=== PATIENT | male | born 1955 | race Caucasian/White ===

== ENCOUNTER 2020-12-19 16:02 | Observation (INO) ==
[2020-12-19 16:50] LABS: Basophils % 0.6 %; Eosinophils # 0.2 K/mcL (0.0-0.6); Eosinophils % 4.2 %; Hematocrit 38.2 % (37.5-50.1); Hemoglobin 12.7 g/dL (12.9-16.9); Immature Granulocytes % 0.4 % (0-4); Lymphocytes # 1.2 K/mcL (0.6-4.6); Lymphocytes % 23.9 %; Mean Corpuscular HGB Conc 33.2 g/dL (31.6-35.5); Mean Corpuscular Hemoglobin 32.8 pg (28.0-33.3); Mean Corpuscular Volume 98.7 fL (83.0-100.0); Mean Platelet Volume 8.9 fL (9.4-12.4); Monocytes # 0.3 K/mcL (0.0-1.3); Monocytes % 6.6 %; Neutrophils # 3.2 K/mcL (1.6-8.9); Platelet Count 153 K/mcL (140-400); Red Blood Count 3.87 M/mcL (4.19-5.50); Red Cell Distribution Width 13.4 % (11.5-14.5); Segmented Neutrophils % 64.3 %
[2020-12-19 16:59] LABS: INR 1.1; Prothrombin Time 12.5 Seconds (9.4-12.1)
[2020-12-19 17:02] LABS: Activated Partial Thrombo Time 29.2 Seconds (26.0-36.0)
[2020-12-19 17:14] LABS: Bilirubin,Urine Negative (Negative); Blood,Urine Negative (Negative); Clarity,Urine Clear (Clear); Color,Urine Light-Yellow (Yellow); Glucose,Urine (UA) Normal (Normal); Ketones,Urine Negative (Negative); Leukocyte Esterase,Urine Negative (Negative); Nitrite,Urine Negative (Negative); PH,Urine 7.5 pH Units (5.0-8.0); Protein,Urine Trace mg/dL (Neg-Trace); Specific Gravity,Urine 1.025 (1.010-1.025); Urobilinogen,Urine Normal (Normal)
[2020-12-19 17:15] LABS: Alanine Aminotransferase 8 Units/L (7-52); Albumin 3.7 g/dL (3.5-5.7); Albumin/Globulin Ratio 1.6 (1.1-2.2); Alkaline Phosphatase 78 Units/L (34-104); Aspartate Amino Transferase 14 Units/L (13-39); BUN/Creatinine Ratio 13 (6-26); Bilirubin,Direct 0.1 mg/dL (0.0-0.2); Bilirubin,Indirect 0.2 mg/dL (0.0-1.0); Bilirubin,Total 0.3 mg/dL (0.3-1.0); Blood Urea Nitrogen 16 mg/dL (8-23); Calcium 8.6 mg/dL (8.6-10.3); Carbon Dioxide 25 mEq/L (23-29); Chloride 109 mEq/L (98-107); Ethanol < 10 mg/dL (Less than 10); Globulin 2.3 g/dL (2.4-3.5); Glucose 101 mg/dL (70-105); Osmolality,Calculated 293 (280-300); Potassium 3.9 mEq/L (3.5-5.1); Sodium 141 mEq/L (136-145); Troponin I < 0.03 ng/mL (< 0.04); eGFR For African Americans > 60 (> 60); eGFR For Non-African Americans > 60 (> 60)
[2020-12-19 17:30] LABS: Amphetamine Screen,Urine Negative ng/mL (Cutoff=1000); Barbiturate Screen,Urine Negative ng/mL (Cutoff=200); Benzodiazepines Screen,Urine Negative ng/mL (Cutoff=200); Cannabinoid Screen,Urine Positive ng/mL (Cutoff = 50); Cocaine Screen,Urine Negative ng/mL (Cutoff= 300); Opiate Screen,Urine Negative ng/mL (Cutoff=300); Phencyclidine Screen,Urine Negative ng/mL (Cutoff=25)
[2020-12-19] MEDS ORDERED: Perflutren Lipid Microsphere 1.3 ML in 0.9 % Sodium Chloride 8.7 ML IVP PRN (19:37)
[2020-12-19] MEDS ORDERED: Isovue-370 500 ML BOTTLE IVP ONE (19:38)
[2020-12-19] MEDS ORDERED: Ondansetron 4 MG/2 ML VIAL IVP PRN (20:43)
[2020-12-19] MEDS ORDERED: Naloxone 0.4 MG/ML INJ IVP PRN (20:43)
[2020-12-19] MEDS: Aspirin 325 MG TABLET PO SCH (20:56)
[2020-12-19] MEDS ORDERED: Acetaminophen 325 MG TABLET PO PRN (21:20)
[2020-12-20 02:22] LABS: Hematocrit 38.5 % (37.5-50.1); Hemoglobin 12.8 g/dL (12.9-16.9); Mean Corpuscular HGB Conc 33.2 g/dL (31.6-35.5); Mean Corpuscular Volume 96.3 fL (83.0-100.0); Mean Platelet Volume 9.1 fL (9.4-12.4); Platelet Count 154 K/mcL (140-400); Red Cell Distribution Width 13.3 % (11.5-14.5)
[2020-12-20 02:30] LABS: Prothrombin Time 11.9 Seconds (9.4-12.1)
[2020-12-20 02:32] LABS: Activated Partial Thrombo Time 27.9 Seconds (26.0-36.0)
[2020-12-20 02:41] LABS: BUN/Creatinine Ratio 14 (6-26); Blood Urea Nitrogen 15 mg/dL (8-23); Calcium 8.7 mg/dL (8.6-10.3); Carbon Dioxide 26 mEq/L (23-29); Chloride 108 mEq/L (98-107); Chol/HDL Ratio 3.1 (0-4.9); Cholesterol 107 mg/dL (< 200); Estimated Average Glucose 105 mg/dl; Glucose 117 mg/dL (70-105); HDL Cholesterol 34 mg/dL (40-59); Hemoglobin A1C 5.3 %; LDL Cholesterol,Calculated 50 mg/dL (< 100); Magnesium 1.9 mg/dL (1.6-2.6); Osmolality,Calculated 294 (280-300); Potassium 3.4 mEq/L (3.5-5.1); Sodium 141 mEq/L (136-145); Triglycerides 115 mg/dL (< 150); eGFR For African Americans > 60 (> 60); eGFR For Non-African Americans > 60 (> 60)
[2020-12-20 02:44] LABS: % Iron Saturation 17 % (20-55); Iron 48 mcg/dL (65-175); Transferrin 199 mg/dL (203-362)
[2020-12-20 03:01] LABS: Ferritin 23 ng/mL (20-250)
[2020-12-20 03:07] LABS: Folate 3.7 ng/mL (3.0-16.0)
[2020-12-20 03:38] VITALS: O2SAT 96
[2020-12-20 07:10] VITALS: BP 148/76; PULSE 60; TEMP 97.8
[2020-12-20] MEDS: Aspirin 325 MG TABLET PO SCH (07:31)
== END 2020-12-20 10:51 | disposition home or self-care (01) ==
LOC: EMEROOARM 16:02 → 3BNU 16:02
PROVIDERS: ADMIT Family Medicine; ATTEND Family Medicine

== ENCOUNTER 2020-12-21 20:46 | Observation (INO) ==
[2020-12-21] MEDS ORDERED: 0.9 % Sodium Chloride 1,000 ML IVC ONE (21:42)
[2020-12-21 22:12] LABS: Basophils % 0.4 %; Eosinophils # 0.2 K/mcL (0.0-0.6); Eosinophils % 2.1 %; Hematocrit 38.2 % (37.5-50.1); Hemoglobin 12.8 g/dL (12.9-16.9); Immature Granulocytes % 0.6 % (0-4); Lymphocytes # 0.9 K/mcL (0.6-4.6); Lymphocytes % 13.3 %; Mean Corpuscular HGB Conc 33.5 g/dL (31.6-35.5); Mean Corpuscular Hemoglobin 32.7 pg (28.0-33.3); Mean Corpuscular Volume 97.7 fL (83.0-100.0); Mean Platelet Volume 8.8 fL (9.4-12.4); Monocytes # 0.4 K/mcL (0.0-1.3); Neutrophils # 5.4 K/mcL (1.6-8.9); Platelet Count 144 K/mcL (140-400); Red Blood Count 3.91 M/mcL (4.19-5.50); Red Cell Distribution Width 13.6 % (11.5-14.5); Segmented Neutrophils % 77.6 %
[2020-12-21 22:34] LABS: BUN/Creatinine Ratio 16 (6-26); Blood Urea Nitrogen 23 mg/dL (8-23); Calcium 8.5 mg/dL (8.6-10.3); Carbon Dioxide 22 mEq/L (23-29); Chloride 111 mEq/L (98-107); Glucose 121 mg/dL (70-105); Osmolality,Calculated 295 (280-300); Potassium 3.9 mEq/L (3.5-5.1); Sodium 140 mEq/L (136-145); Troponin I < 0.03 ng/mL (< 0.04); eGFR For African Americans 58 (> 60); eGFR For Non-African Americans 48 (> 60)
[2020-12-22] MEDS ORDERED: Perflutren Lipid Microsphere 1.3 ML in 0.9 % Sodium Chloride 8.7 ML IVP PRN (04:16)
[2020-12-22] MEDS ORDERED: Ondansetron 4 MG/2 ML VIAL IVP PRN (04:17)
[2020-12-22] MEDS ORDERED: Melatonin 3 MG TABLET PO PRN (04:17)
[2020-12-22] MEDS ORDERED: Naloxone 0.4 MG/ML INJ IVP PRN (04:17)
[2020-12-22] MEDS ORDERED: Acetaminophen 325 MG TABLET PO PRN (04:17)
[2020-12-22] MEDS: 0.9 % Sodium Chloride 1,000 ML IVC SCH ×2 (04:52→13:06)
[2020-12-22 05:25] LABS: Bilirubin,Urine Negative (Negative); Blood,Urine Negative (Negative); Clarity,Urine Clear (Clear); Color,Urine Light-Yellow (Yellow); Glucose,Urine (UA) Normal (Normal); Ketones,Urine Negative (Negative); Leukocyte Esterase,Urine Negative (Negative); Nitrite,Urine Negative (Negative); PH,Urine 6.5 pH Units (5.0-8.0); Protein,Urine Negative (Neg-Trace); Urobilinogen,Urine Normal (Normal)
[2020-12-22] MEDS ORDERED: *HR* Heparin 5,000 UNIT/ML VIAL SQ SCH (06:00)
[2020-12-22] MEDS ORDERED: Aspirin 325 MG TABLET PO SCH (09:00)
[2020-12-22 09:57] LABS: BUN/Creatinine Ratio 17 (6-26); Blood Urea Nitrogen 18 mg/dL (8-23); Calcium 8.2 mg/dL (8.6-10.3); Carbon Dioxide 23 mEq/L (23-29); Chloride 114 mEq/L (98-107); Glucose 133 mg/dL (70-105); Osmolality,Calculated 296 (280-300); Potassium 3.8 mEq/L (3.5-5.1); Sodium 141 mEq/L (136-145); eGFR For African Americans > 60 (> 60); eGFR For Non-African Americans > 60 (> 60)
[2020-12-22 16:09] VITALS: BP 153/83
[2020-12-23] MEDS ORDERED: Aspirin 81 MG TAB.CHEW PO SCH (09:00)
[2020-12-23] MEDS ORDERED: Aspirin 325 MG TABLET PO SCH (09:00)
== END 2020-12-22 18:13 | disposition home or self-care (01) ==
LOC: 3NENU 20:46 → EMEROOARM 20:46 → SUATTDRO 12-22 03:28 → 2NENU 12-22 03:37
PROVIDERS: ADMIT Internal Medicine; ATTEND Internal Medicine

== ENCOUNTER 2022-01-08 10:59 | Inpatient (IN) ==
[2022-01-08 13:22] LABS: Basophils % 0.7 %; Eosinophils # 0.1 K/mcL (0.0-0.6); Eosinophils % 1.6 %; Hematocrit 44.8 % (37.5-50.1); Immature Granulocytes % 0.4 % (0-4); Lymphocytes # 1.2 K/mcL (0.6-4.6); Lymphocytes % 22.3 %; Mean Corpuscular HGB Conc 33.5 g/dL (31.6-35.5); Mean Corpuscular Hemoglobin 30.8 pg (28.0-33.3); Mean Platelet Volume 9.2 fL (9.4-12.4); Monocytes # 0.5 K/mcL (0.0-1.3); Monocytes % 8.1 %; Neutrophils # 3.7 K/mcL (1.6-8.9); Platelet Count 128 K/mcL (140-400); Red Blood Count 4.87 M/mcL (4.19-5.50); Red Cell Distribution Width 13.4 % (11.5-14.5); Segmented Neutrophils % 66.9 %; White Blood Count 5.6 K/mcL (4.3-11.1)
[2022-01-08 13:38] LABS: Bilirubin,Urine Negative (Negative); Blood,Urine Negative (Negative); Clarity,Urine Clear (Clear); Color,Urine Light-Yellow (Yellow); Glucose,Urine (UA) Normal (Normal); Ketones,Urine Negative (Negative); Leukocyte Esterase,Urine Negative (Negative); Nitrite,Urine Negative (Negative); Protein,Urine Trace mg/dL (Neg-Trace); Specific Gravity,Urine 1.028 (1.010-1.025); Urobilinogen,Urine Normal (Normal)
[2022-01-08 13:52] LABS: BUN/Creatinine Ratio 14 (6-26); Blood Urea Nitrogen 16 mg/dL (8-23); Calcium 9.2 mg/dL (8.6-10.3); Carbon Dioxide 23 mEq/L (23-29); Chloride 107 mEq/L (98-107); Glucose 92 mg/dL (70-105); Osmolality,Calculated 289 (280-300); Potassium 4.4 mEq/L (3.5-5.1); Sodium 139 mEq/L (136-145); Troponin I < 0.03 ng/mL (< 0.04); eGFR For African Americans > 60 (> 60); eGFR For Non-African Americans > 60 (> 60)
[2022-01-08] MEDS ORDERED: Acetaminophen 325 MG TABLET PO ONE (16:22)
[2022-01-08] MEDS ORDERED: *HR* HYDROcodone/Acet 5/325 mg TABLET PO ONE (20:47)
[2022-01-08] MEDS ORDERED: Ondansetron ODT 4 MG TAB.RAPDIS SL PRN (20:53)
[2022-01-08] MEDS ORDERED: Naloxone 0.4 MG/ML INJ IVP PRN (20:53)
[2022-01-08] MEDS ORDERED: Melatonin 3 MG TABLET PO PRN (20:53)
[2022-01-08 23:21] LABS: INR 1.1; Prothrombin Time 12.1 Seconds (9.4-12.1)
[2022-01-08 23:24] LABS: Activated Partial Thrombo Time 32.1 Seconds (26.0-36.0)
[2022-01-09 05:02] LABS: Basophils % 0.3 %; Eosinophils % 0.3 %; Hematocrit 43.4 % (37.5-50.1); Hemoglobin 15.1 g/dL (12.9-16.9); Immature Granulocytes % 0.6 % (0-4); Immature Reticulocyte % 7.1 % (11.0-38.0); Lymphocytes # 0.6 K/mcL (0.6-4.6); Mean Corpuscular HGB Conc 34.8 g/dL (31.6-35.5); Mean Corpuscular Hemoglobin 31.5 pg (28.0-33.3); Mean Corpuscular Volume 90.4 fL (83.0-100.0); Mean Platelet Volume 9.4 fL (9.4-12.4); Monocytes % 1.2 %; Neutrophils # 2.8 K/mcL (1.6-8.9); Platelet Count 139 K/mcL (140-400); Red Cell Distribution Width 12.8 % (11.5-14.5); Retculocyte # 0.08 M/mcL (0.05-0.10); Reticulocyte % 1.6 % (1.6-2.8); Segmented Neutrophils % 81.6 %; White Blood Count 3.4 K/mcL (4.3-11.1)
[2022-01-09 05:39] LABS: Albumin 4.1 g/dL (3.5-5.7); Albumin/Globulin Ratio 1.6 (1.1-2.2); Bilirubin,Direct 0.1 mg/dL (0.0-0.2); Bilirubin,Indirect 0.4 mg/dL (0.0-1.0); Bilirubin,Total 0.5 mg/dL (0.3-1.0); Globulin 2.5 g/dL (2.4-3.5); Total Protein 6.6 g/dL (6.4-8.9)
[2022-01-09 06:01] LABS: Folate 6.4 ng/mL (3.0-16.0)
[2022-01-09] MEDS: Nicotine 14 MG PATCH.TD24 TD SCH ×2 (09:56→20:46)
[2022-01-09] MEDS: *HR* HYDROcodone/Acet 5/325 mg TABLET PO PRN ×3 (10:03→20:46)
[2022-01-10] MEDS ORDERED: Famotidine 20 MG/2 ML VIAL IVP ONE (06:52)
[2022-01-10] MEDS ORDERED: Gabapentin 300 MG CAPSULE PO ONE (06:52)
[2022-01-10] MEDS ORDERED: Acetaminophen IV 1,000 MG/100 ML BAG IVPB ONE (06:52)
[2022-01-10] MEDS ORDERED: *HR* Methadone 5 MG TABLET PO ONE (06:53)
[2022-01-10] MEDS ORDERED: tiZANidine 4 MG TABLET PO ONE (06:53)
[2022-01-10] MEDS ORDERED: Albuterol 2.5 MG/3 ML NEBULIZER IH ONE (07:08)
[2022-01-10] MEDS ORDERED: Ketamine HCL *QUVA* 50mg (1mL) SYRINGE ONE ×2 (07:11→09:59)
[2022-01-10] MEDS ORDERED: *HR* Propofol 200 MG/20 ML VIAL IVP ONE ×3 (07:11→13:23)
[2022-01-10] MEDS ORDERED: *HR* FentaNYL (PF) 100 MCG/2 ML VIAL ONE (07:11)
[2022-01-10] MEDS ORDERED: *HR* Midazolam HCl 2 MG/2 ML VIAL ONE (07:11)
[2022-01-10] MEDS ORDERED: Lidocaine -MPF 2% 2 ML VIAL ONE (07:12)
[2022-01-10] MEDS ORDERED: Ondansetron 4 MG/2 ML VIAL ONE (07:12)
[2022-01-10] MEDS ORDERED: Lidocaine -MPF 4% 5 ML AMPUL ONE (07:12)
[2022-01-10] MEDS ORDERED: *HR* Succinylcholine 200 MG/10 ML VIAL IVP ONE (07:12)
[2022-01-10] MEDS ORDERED: *HR* Remifentanil 2 MG VIAL IVP ONE (07:17)
[2022-01-10] MEDS ORDERED: Vancomycin 1,000 MG VIAL ONE (07:29)
[2022-01-10] MEDS ORDERED: Clindamycin 900 MG/50 ML 900 MG/50 ML IV.SOLN IVPB ONE (07:47)
[2022-01-10] MEDS ORDERED: Ringers Solution, Lactated 1,000 ML IVC SCH ×2 (08:00→16:44)
[2022-01-10] MEDS ORDERED: Polymyxin B Sulfate 500,000 UNIT, Sodium Chloride IRRigation 1,000 ML IR ONE (08:15)
[2022-01-10] MEDS ORDERED: *HR* Remifentanil 1 MG VIAL IVP ONE (11:41)
[2022-01-10] MEDS: *HR* HYDROcodone/Acet 5/325 mg TABLET PO PRN (15:07)
[2022-01-10] MEDS ORDERED: Ondansetron 4 MG/2 ML VIAL IVP PRN (16:44)
[2022-01-10] MEDS ORDERED: Naloxone 0.4 MG/ML INJ IVP PRN (16:44)
[2022-01-10] MEDS ORDERED: Acetaminophen 325 MG TABLET PO PRN (16:44)
[2022-01-10] MEDS: Clindamycin 900 MG/50 ML 900 MG/50 ML IV.SOLN IVPB SCH ×2 (18:10→22:58)
[2022-01-10] MEDS: *HR* OxyCODONE Immed Rel 5 MG TABLET PO PRN ×2 (18:30→22:57)
[2022-01-10] MEDS: Melatonin 3 MG TABLET PO PRN (22:32)
[2022-01-11] MEDS: *HR* OxyCODONE Immed Rel 5 MG TABLET PO PRN ×4 (07:30→21:19)
[2022-01-11] MEDS: *HR* HYDROcodone/Acet 5/325 mg TABLET PO PRN (19:34)
[2022-01-11] MEDS: Melatonin 3 MG TABLET PO PRN (21:20)
[2022-01-12] MEDS: *HR* OxyCODONE Immed Rel 5 MG TABLET PO PRN ×3 (02:12→14:02)
[2022-01-12] MEDS: *HR* HYDROcodone/Acet 5/325 mg TABLET PO PRN ×2 (03:36→11:04)
[2022-01-12 11:06] VITALS: BP 156/79; PULSE 78; TEMP 97.8; O2SAT 96
[2022-01-12 12:58] LABS: Influenza A PCR Negative (Negative); Influenza B PCR Negative (Negative); Resp. Syncytial Virus PCR Negative (Negative)
[2022-01-12 12:59] LABS: SARS-CoV-2 by PCR (In House) Negative (Negative)
== END 2022-01-12 16:50 | disposition other institution (70) | DRG 472 ==
LOC: 4WAOSI 10:59 → EMEROOARM 10:59 → SUATTDRO 20:46 → 4WAOSI 21:21
PROVIDERS: ADMIT Internal Medicine; ATTEND Family Medicine
PROC: SPICORP (2022-01-10 08:15)

== ENCOUNTER 2022-03-19 09:13 | Inpatient (IN) ==
[2022-03-19 10:04] LABS: Basophils % 0.6 %; Eosinophils # 0.2 K/mcL (0.0-0.6); Hematocrit 40.8 % (37.5-50.1); Hemoglobin 14.1 g/dL (12.9-16.9); Immature Granulocytes % 0.3 % (0-4); Lymphocytes # 1.2 K/mcL (0.6-4.6); Lymphocytes % 18.8 %; Mean Corpuscular HGB Conc 34.6 g/dL (31.6-35.5); Mean Corpuscular Hemoglobin 32.5 pg (28.0-33.3); Mean Platelet Volume 9.3 fL (9.4-12.4); Monocytes # 0.5 K/mcL (0.0-1.3); Monocytes % 7.9 %; Neutrophils # 4.4 K/mcL (1.6-8.9); Platelet Count 150 K/mcL (140-400); Red Blood Count 4.34 M/mcL (4.19-5.50); Red Cell Distribution Width 15.1 % (11.5-14.5); Segmented Neutrophils % 69.4 %; White Blood Count 6.3 K/mcL (4.3-11.1)
[2022-03-19 10:09] LABS: Prothrombin Time 11.4 Seconds (9.4-12.1)
[2022-03-19 10:16] LABS: BUN/Creatinine Ratio 18 (6-26); Blood Urea Nitrogen 19 mg/dL (8-23); Calcium 9.1 mg/dL (8.6-10.3); Carbon Dioxide 24 mEq/L (23-29); Chloride 107 mEq/L (98-107); Glucose 108 mg/dL (70-105); Osmolality,Calculated 289 (280-300); Sodium 138 mEq/L (136-145); eGFR For African Americans > 60 (> 60); eGFR For Non-African Americans > 60 (> 60)
[2022-03-19 10:35] LABS: Alanine Aminotransferase 26 Units/L (7-52); Albumin 4.1 g/dL (3.5-5.7); Albumin/Globulin Ratio 1.9 (1.1-2.2); Alkaline Phosphatase 76 Units/L (34-104); Aspartate Amino Transferase 22 Units/L (13-39); Bilirubin,Direct 0.1 mg/dL (0.0-0.2); Bilirubin,Indirect 0.5 mg/dL (0.0-1.0); Bilirubin,Total 0.6 mg/dL (0.3-1.0); Globulin 2.2 g/dL (2.4-3.5); Total Protein 6.3 g/dL (6.4-8.9)
[2022-03-19] MEDS ORDERED: *HR* FentaNYL (PF) 100 MCG/2 ML VIAL IVP ONE (11:27)
[2022-03-19] MEDS ORDERED: Acetaminophen 325 MG TABLET PO PRN (11:33)
[2022-03-19] MEDS ORDERED: Naloxone 0.4 MG/ML INJ IVP PRN (11:33)
[2022-03-19] MEDS ORDERED: Melatonin 3 MG TABLET PO PRN (11:33)
[2022-03-19] MEDS ORDERED: Ondansetron 4 MG/2 ML VIAL IVP PRN (11:33)
[2022-03-19] MEDS ORDERED: Mag Hydrox/Al Hydrox/Simeth 30 ML UDC PO PRN (11:33)
[2022-03-19] MEDS ORDERED: Gabapentin 300 MG CAPSULE PO SCH ×2 (22:30→22:45)
[2022-03-20] MEDS: *HR* Heparin 5,000 UNIT/ML VIAL SQ SCH ×2 (03:31→05:32)
[2022-03-20 06:00] LABS: Basophils % 0.4 %; Mean Platelet Volume 9.4 fL (9.4-12.4)
[2022-03-20 06:01] LABS: Hemoglobin 13.3 g/dL (12.9-16.9); White Blood Count 4.8 K/mcL (4.3-11.1)
[2022-03-20 06:02] LABS: Eosinophils # 0.2 K/mcL (0.0-0.6); Eosinophils % 3.4 %; Hematocrit 37.9 % (37.5-50.1); Immature Granulocytes % 0.4 % (0-4); Lymphocytes # 1.3 K/mcL (0.6-4.6); Lymphocytes % 27.7 %; Mean Corpuscular HGB Conc 35.1 g/dL (31.6-35.5); Mean Corpuscular Hemoglobin 32.4 pg (28.0-33.3); Mean Corpuscular Volume 92.4 fL (83.0-100.0); Monocytes # 0.4 K/mcL (0.0-1.3); Monocytes % 8.2 %; Neutrophils # 2.9 K/mcL (1.6-8.9); Platelet Count 130 K/mcL (140-400); Red Cell Distribution Width 14.8 % (11.5-14.5); Segmented Neutrophils % 59.9 %
[2022-03-20 06:21] LABS: Prothrombin Time 10.8 Seconds (9.4-12.1)
[2022-03-20 06:27] LABS: BUN/Creatinine Ratio 16 (6-26); Blood Urea Nitrogen 15 mg/dL (8-23); Carbon Dioxide 24 mEq/L (23-29); Chloride 107 mEq/L (98-107); Glucose 92 mg/dL (70-105); Osmolality,Calculated 284 (280-300); Potassium 4.1 mEq/L (3.5-5.1); Sodium 137 mEq/L (136-145); eGFR For African Americans > 60 (> 60); eGFR For Non-African Americans > 60 (> 60)
[2022-03-20 06:35] LABS: Platelet Estimate Normal (Normal)
[2022-03-20] MEDS: *HR* OxyCODONE Immed Rel 5 MG TABLET PO PRN ×3 (08:50→20:41)
[2022-03-20] MEDS ORDERED: CeFAZolin Syr 2,000MG/20 ML 2,000 MG/20 ML SYRINGE IVPB ONE (10:08)
[2022-03-20] MEDS ORDERED: *HR* Remifentanil 1 MG VIAL IVP ONE (10:14)
[2022-03-20] MEDS ORDERED: *HR* Propofol 200 MG/20 ML VIAL IVP ONE (10:15)
[2022-03-20] MEDS ORDERED: *HR* Midazolam HCl 2 MG/2 ML VIAL ONE (10:15)
[2022-03-20] MEDS ORDERED: Ringers Solution, Lactated 1,000 ML IVC SCH (10:15)
[2022-03-20] MEDS ORDERED: Gabapentin 300 MG CAPSULE PO ONE (10:19)
[2022-03-20] MEDS ORDERED: tiZANidine 4 MG TABLET PO ONE (10:19)
[2022-03-20] MEDS ORDERED: Acetaminophen IV 1,000 MG/100 ML BAG IVPB ONE (10:19)
[2022-03-20] MEDS ORDERED: Lidocaine -MPF 2% 5 ML VIAL ONE ×2 (10:19→10:27)
[2022-03-20] MEDS ORDERED: *HR* Succinylcholine 200 MG/10 ML VIAL IVP ONE (10:19)
[2022-03-20] MEDS ORDERED: Lidocaine -MPF 4% 5 ML AMPUL ONE (10:19)
[2022-03-20] MEDS ORDERED: Famotidine 20 MG/2 ML VIAL IVP ONE (10:19)
[2022-03-20] MEDS ORDERED: *HR* Phenylephrine 10 MG/ML VIAL ONE (10:25)
[2022-03-20] MEDS ORDERED: Heparin 1,000 UNITS/500 mL 500 ML ONE (10:26)
[2022-03-20] MEDS ORDERED: *HR* FentaNYL (PF) 100 MCG/2 ML VIAL ONE (10:29)
[2022-03-20] MEDS ORDERED: Vancomycin 1,000 MG VIAL ONE (10:50)
[2022-03-20] MEDS ORDERED: Bacitracin OINT PKT TP ONE (10:52)
[2022-03-20] MEDS ORDERED: Dexmedetomidine HCl 400 MCG/100 ML MLS IVC ONE (10:53)
[2022-03-20] MEDS ORDERED: Ondansetron 4 MG/2 ML VIAL ONE (12:52)
[2022-03-20] MEDS ORDERED: *HR* Remifentanil 2 MG VIAL IVP ONE (12:52)
[2022-03-20] MEDS ORDERED: tiZANidine 4 MG TABLET PO SCH (16:46)
[2022-03-20] MEDS ORDERED: Ondansetron 4 MG/2 ML VIAL IVP PRN ×2 (16:49→18:10)
[2022-03-20] MEDS ORDERED: Acetaminophen IV 1,000 MG/100 ML BAG IVPB PRN ×2 (16:49→18:10)
[2022-03-20] MEDS ORDERED: *HR* OxyCODONE Immed Rel 5 MG TABLET PO PRN ×2 (16:51→18:10)
[2022-03-20] MEDS: *HR* HYDROmorphone PF 0.5 MG/0.5 ML SYRINGE IVP PRN ×4 (17:02→17:25)
[2022-03-20] MEDS ORDERED: Pregabalin 75 MG CAPSULE PO ONE (17:20)
[2022-03-20] MEDS ORDERED: *HR* HYDROmorphone PF 0.5 MG/0.5 ML SYRINGE IVP PRN ×2 (17:49→18:10)
[2022-03-20] MEDS ORDERED: Naloxone 0.4 MG/ML INJ IVP PRN (18:10)
[2022-03-20] MEDS ORDERED: Acetaminophen 325 MG TABLET PO PRN (18:10)
[2022-03-20] MEDS: *HR* HYDROcodone/Acet 5/325 mg TABLET PO PRN (18:43)
[2022-03-20] MEDS: CeFAZolin 2 GM/120 ML BAG IVPB SCH (20:06)
[2022-03-20] MEDS ORDERED: Ketorolac 30 MG/ML VIAL IVP ONE (23:18)
[2022-03-21] MEDS: diazePAM 10 MG TABLET PO PRN ×3 (00:22→22:13)
[2022-03-21] MEDS: *HR* OxyCODONE Immed Rel 5 MG TABLET PO PRN ×4 (01:17→22:13)
[2022-03-21] MEDS: Ringers Solution, Lactated 1,000 ML IVC SCH ×2 (02:11→04:30)
[2022-03-21] MEDS: CeFAZolin 2 GM/120 ML BAG IVPB SCH (04:04)
[2022-03-21] MEDS: *HR* HYDROcodone/Acet 5/325 mg TABLET PO PRN ×3 (04:09→23:35)
[2022-03-21 16:19] VITALS: O2SAT 98
[2022-03-21] MEDS ORDERED: Gabapentin 300 MG CAPSULE PO SCH (22:44)
[2022-03-22] MEDS: *HR* OxyCODONE Immed Rel 5 MG TABLET PO PRN ×2 (03:31→09:37)
[2022-03-22 06:05] LABS: Basophils % 0.5 %; Eosinophils # 0.1 K/mcL (0.0-0.6); Eosinophils % 1.3 %; Hematocrit 39.2 % (37.5-50.1); Hemoglobin 13.5 g/dL (12.9-16.9); Immature Granulocytes % 0.4 % (0-4); Immature Platelets 2.3 % (1.1-6.1); Lymphocytes # 1.2 K/mcL (0.6-4.6); Lymphocytes % 21.3 %; Mean Corpuscular HGB Conc 34.4 g/dL (31.6-35.5); Mean Corpuscular Hemoglobin 32.4 pg (28.0-33.3); Mean Platelet Volume 9.4 fL (9.4-12.4); Monocytes # 0.6 K/mcL (0.0-1.3); Monocytes % 10.9 %; Neutrophils # 3.7 K/mcL (1.6-8.9); Platelet Count 152 K/mcL (140-400); Red Blood Count 4.17 M/mcL (4.19-5.50); Red Cell Distribution Width 15.3 % (11.5-14.5); Segmented Neutrophils % 65.6 %; White Blood Count 5.6 K/mcL (4.3-11.1)
[2022-03-22 06:16] LABS: BUN/Creatinine Ratio 15 (6-26); Blood Urea Nitrogen 14 mg/dL (8-23); Calcium 9.2 mg/dL (8.6-10.3); Carbon Dioxide 30 mEq/L (23-29); Chloride 102 mEq/L (98-107); Glucose 100 mg/dL (70-105); Magnesium 1.8 mg/dL (1.6-2.6); Osmolality,Calculated 289 (280-300); Potassium 3.6 mEq/L (3.5-5.1); Sodium 139 mEq/L (136-145); eGFR For African Americans > 60 (> 60); eGFR For Non-African Americans > 60 (> 60)
[2022-03-22 11:48] VITALS: BP 133/77; PULSE 80; TEMP 98.3
[2022-03-22 13:01] LABS: Influenza A PCR Negative (Negative); Influenza B PCR Negative (Negative); Resp. Syncytial Virus PCR Negative (Negative)
[2022-03-22 13:41] LABS: SARS-CoV-2 by PCR (In House) Negative (Negative)
[2022-03-22] MEDS: *HR* HYDROcodone/Acet 5/325 mg TABLET PO PRN (18:56)
== END 2022-03-22 19:00 | DRG 472 ==
LOC: EMEROOARM 09:13 → 4WAOSI 03-20 07:45 → SUATTDRO 03-20 07:45 → 4WAOSI 03-20 08:43
PROVIDERS: ADMIT Internal Medicine; ATTEND Pharmacist